=== PATIENT | male | born 2000 | race Hispanic/Latino ===

== ENCOUNTER 2024-03-30 16:48 | Emergency (ER) | payer OTHER ==
[~2024-03-30] VITALS: Ht 182.9 cm; Wt 91.9 kg
[2024-03-30 19:42] VITALS: BP 142/86; TEMP 98.3; O2SAT 100
[2024-03-30] MEDS: AUGMENTIN 875 MG TAB PO ONE (19:45)
[2024-03-30] MEDS: AUGMENTIN ES SUSP POWDER 600MG/5ML 125ML BTL PO ONE (20:00)
[2024-03-30] MEDS ORDERED: AUGM250S13 PO (21:41)
== END 2024-03-30 21:45 | disposition home or self-care (01) ==
LOC: M ED 16:48
DX: S61.031A Puncture wound without foreign body of right thumb without damage to nail, initial encounter (principal); W53.81XA Bitten by other rodent, initial encounter; Y92.007 Garden or yard of unspecified non-institutional (private) residence as the place of occurrence of the external cause; Y93.89 Activity, other specified; Y99.9 Unspecified external cause status